=== PATIENT | female | born 1995 | race Caucasian/White ===

== ENCOUNTER 2017-02-14 06:15 | Inpatient (IN) | payer BC ==
[~2017-02-14] VITALS: Ht 160 cm; Wt 71.7 kg
[2017-02-14] VITALS (13 sets, daily range): BP systolic 125–149; BP diastolic 65–98
[~2017-02-14 06:15] MED LIST: IBUPROFEN200 M1 OR; NAPROXEN500 MG PO; PHENERGAN25 MG/TAB PO; SEPTRA PO; TYLENOL500 MG OR
--- NOTE | 2017-02-14 06:27 | NUR ---
AMBULATED TO BIRTHING ROOM #1.
--- NOTE | 2017-02-14 06:40 | NUR ---
REPORT TO Paula MCRAE RNC, AT PATIENT'S BEDSIDE.
--- NOTE | 2017-02-14 06:40 | NUR ---
18G IV STARTED ON LEFT FOREARM, LABS DRAWN. PT TOLERATED IT WELL. LR BOLUS STARTED.
[2017-02-14 06:43] LABS: URINE BILIRUBIN - DIPSTICK NEGATIVE (NEGATIVE); URINE BLOOD DIPSTICK LARGE (NEGATIVE); URINE COLOR YELLOW; URINE GLUCOSE - DIPSTICK NEGATIVE (NEGATIVE); URINE KETONE NEGATIVE (NEGATIVE); URINE LEUK ESTERASE SMALL (NEGATIVE); URINE NITRITE - DIPSTICK NEGATIVE (Negative); URINE PROTEIN - DIPSTICK NEGATIVE (NEG-TRACE); URINE SPECIFIC GRAVITY 1.015; URINE UROBILINOGEN - DIPSTICK 0.2 E.U./dL (0.2)
[2017-02-14 06:44] LABS: URINE CLARITY CLOUDY
[2017-02-14 06:51] LABS: URINE BACTERIA RARE hpf; URINE RBC TNTC RBC/hpf (0-5)
[2017-02-14 06:52] LABS: BARBITURATES NEGATIVE (NEGATIVE); COCAINE NEGATIVE (NEGATIVE); METHADONE NEGATIVE (NEGATIVE); OXCYCODONE NEGATIVE (NEGATIVE); TETRAHYDROCANNABIONOL NEGATIVE (NEGATIVE); TRICYLIC ANTIDEPRESSANTS NEGATIVE (NEGATIVE)
--- NOTE | 2017-02-14 06:56 | NUR ---
PCN STARTED FOR GBS POSITIVE PER PT. RECORDS BEING REQUESTED FROM [facility].
--- NOTE | 2017-02-14 07:00 | NUR ---
PT REPOSITIONED TO HANDS AND KNEES AT THIS TIME, SWAYING SIDE TO SIDE.
--- NOTE | 2017-02-14 07:12 | NUR ---
PT REPOSITIONED TO LEFT TILT AT THIS TIME.
[2017-02-14 07:14] LABS: HEMATOCRIT 32.5 % (37.0-47.0); HEMOGLOBIN 11.6 g/dl (12.0-16.0); IMMATURE GRANULOCYTES 0.7 % (0.0-1.0); MEAN CELL VOLUME 84.9 fL CALC (80.0-100.0); MEAN CORPUSCULAR HGB 30.3 pG CALC (26.0-32.0); MEAN CORPUSCULAR HGB CONC 35.7 g/L CALC (32.0-36.0); NEUT# 7.27 thou/uL (2.00-7.15); RED BLOOD COUNT 3.83 mill/uL (4.20-5.60); RED CELL DISTRI WIDTH 13.3 % (11.5-15.5)
--- NOTE | 2017-02-14 07:24 | NUR ---
DR. ROMERO AT BEDSIDE, SVE DONE, PT SROM AT 0724 FOR CLEAR FLUID, PT IS COMPLETE AND ZERO STATION PER MD. WILL START PUSHING ONCE PT FEELS THE URGE.
--- NOTE | 2017-02-14 07:30 | NUR ---
PT STARTING TO PUSH WITH EACH CONTRACTION.
[2017-02-14] MEDS ORDERED: PRENATAL1 TA1 PO (07:36)
--- NOTE | 2017-02-14 07:38 | NUR ---
REQUEST FOR RECORDS FAXED FOR 3RD TIME TO [facility].
--- NOTE | 2017-02-14 07:42 | NUR ---
S/W ARIANNA OLGUIN AT [facility], SHE HAS RECIEVED FAX AND WILL BE FAXING SY[place]IE.
[2017-02-14 07:52] LABS: ALKALINE PHOSPHATASE 155 u/l (38-126); ANION GAP 17 (6-22 (CALC)); BILIRUBIN, TOTAL 0.5 mg/dL (0.0-1.4); BUN 6 mg/dL (7-17); BUN/CREATININE RATIO 9 (12-20 (CALC)); CALCIUM 9.2 mg/dL (8.4-10.2); CARBON DIOXIDE 17 mmol/l (22-30); CHLORIDE 107 mmol/l (95-108); CREATININE 0.6 mg/dL (0.5-1.0); GFR > 60 ML/MIN (>=60 (CALC)); GFR FOR AFR.AMER. > 60 ML/MIN (>=60 (CALC)); GLUCOSE 90 mg/dL (65-105); POTASSIUM 3.5 mmol/l (3.5-5.1); SGOT/AST 18 u/l (14-36); SGPT/ALT 25 u/l (9-52); SODIUM 138 mmol/l (137-146); TOTAL PROTEIN 7.1 g/dL (6.3-8.2)
[2017-02-14] MEDS ORDERED: FERR SULFATE325 MG PO (08:01)
--- NOTE | 2017-02-14 08:03 | NUR ---
PT REPOSITIONED TO PUSH ON HER LEFT SIDE.
--- NOTE | 2017-02-14 08:20 | NUR ---
LR BOLUS STARTED FOR VARIABLE DECELS. DR. ROMERO AT BEDSIDE, SVE DONE WHILE PT IS PUSHING, PT PUSHING WELL.
--- NOTE | 2017-02-14 08:30 | NUR ---
PT REPOSITIONED TO KNEE CHEST TO CONTINUE TO PUSH.
--- NOTE | 2017-02-14 08:42 | NUR ---
PT REPOSITIONED TO COMMODE TO CONTINUE TO PUSH. FAMILY REMAINS AT BEDSIDE.
--- NOTE | 2017-02-14 08:52 | NUR ---
PT BACK TO BED PER HER REQUEST.
--- NOTE | 2017-02-14 09:18 | NUR ---
O2 APPLIED AT 15LPM PER NON REBREATHER MASK AT THIS TIME. PT CONTINUES TO PUSH WITH EACH CONTRACTION.
--- NOTE | 2017-02-14 09:24 | NUR ---
DR. ROMERO CALLED IN ROOM FOR DELIVERY.
--- NOTE | 2017-02-14 09:30 | NUR ---
OF FEMALE INFANT BY DR. ROMERO. SEE DELIVERY ROOM RECORD FOR DOCUMENTATION.
--- NOTE | 2017-02-14 09:34 | NUR ---
PLACENTA OUT AT THIS TIME. LR WITH 10 UNITS OF PITOCIN BOLUSING PER ORDER. CYTOTEC GIVEN.
--- NOTE | 2017-02-14 09:40 | NUR ---
LIDOCAINE APPLIED BY DR. ROMERO FOR PERINEAL REPAIR AT THIS TIME.
--- NOTE | 2017-02-14 09:45 | NUR ---
DR. ROMERO DONE REPAIRING LEFT SIDE WALL AND RIGHT LABIAL LACERATIONS. PERICARE DONE. FUNDUS FIRM AT UMBILICUS, MODERATE LOCHIA. SEE FUNDAL CHECKS FOR DOCUMENTATION.
--- NOTE | 2017-02-14 11:05 | NUR ---
DR. ROMERO NOTIFIED OF TEMP 100.5, AND BP READINGS. ORDERS RECEIVED.
--- NOTE | 2017-02-14 11:15 | NUR ---
PT UP TO BATHROOM, VOIDED LARGE AMOUNT OF URINE, FUNDUS FIRM AT UMBILICUS. PERICARE DONE. PT THEN ASSISTED TO SHOWER, SHOWERED, BUT FELT DIZZY TOWARDS THE END. NURSE ASSISTED WITH SITTING PT IN TOILET, FINISHING PERICARE, DERMOPLAST APPLIED. PANTIES AND PADS PLACED. NEW GOWN. PT THEN TRANSFERED TO BED. DENIES ANY MORE DIZZINESS. ENCOURAGED TO EAT LUNCH AND PO HYDRATION. INITIAL TEACHING DONE, PT VERBALIZED UNDERSTANDING. DENIES ANY PAIN. AT BEDSIDE.
--- NOTE | 2017-02-14 11:40 | NUR ---
DR. ROMERO NOTIFIED OF TEMP 101.1 ORDERS RECEIVED TO CHANGE ANTIBIOTICS TO ANCEF. FURTHER ORDERS RECEIVED FOR CBC, BCX2 AND URINE CULTURE. DISCUSSED PLAN OF CARE WITH PT, PT VERBALIZED UNDERSTANDING.
[2017-02-14 12:16] LABS: HEMATOCRIT 29.8 % (37.0-47.0); HEMOGLOBIN 10.4 g/dl (12.0-16.0); IMMATURE GRANULOCYTES 0.8 % (0.0-1.0); MEAN CELL VOLUME 86.6 fL CALC (80.0-100.0); MEAN CORPUSCULAR HGB 30.2 pG CALC (26.0-32.0); MEAN CORPUSCULAR HGB CONC 34.9 g/L CALC (32.0-36.0); NEUT# 19.05 thou/uL (2.00-7.15); RED BLOOD COUNT 3.44 mill/uL (4.20-5.60); RED CELL DISTRI WIDTH 13.3 % (11.5-15.5)
--- NOTE | 2017-02-14 12:30 | NUR ---
REPORT GIVEN TO Priya SANCHES RN TO ASSUME CARE OF PT.
--- NOTE | 2017-02-14 13:00 | NUR ---
PT. ASSISTED OOB TO TOILET WITHOUT ANY ADVERSE EFFECT. PT. VOIDED AND PERICARE DEMONSTRATED. PT. RETURNED DEMO SATISFACTORILY.
--- NOTE | 2017-02-14 15:29 | NUR ---
IV FLUID INFUSION D/C. PT.IN STABLE CONDITION. TOLERATED REGULAR DIET.OOB AD YENNY TO BATHROOM.
--- NOTE | 2017-02-14 17:10 | NUR ---
pT. IN STABLE CONDITION. MOVED TO PAC UNIT WITH BABY CRADLED ON CHEST AND SPOUSE ACCOMPANYING . MOVE WAS DONE DUE TO CODE BROWN/WEATHER.
--- NOTE | 2017-02-14 19:00 | NUR ---
BEDSIDE SHIFT REPORT RECEIVED FROM PREVIOUS SHIFT. PT SITTING UP IN BED, HOLDING INFANT SKIN TO SKIN. DENIES ANY NEEDS AT THIS TIME. POC GIVEN. WILL RETURN TO MONITOR.
--- NOTE | 2017-02-14 19:35 | NUR ---
PT ASSISTED OUT OF BED, AMBULATED TO BR. DENIES C/O DIZZINESS OR WEAKNESS. PT URINATED MOD AMT WITH SMALL AMOUNT OF BLEEDING. NO CLOTS NOTED. MOISES CARE INSTRUCTIONS GIVEN AND RETURN DEMONSTRATION GIVEN. TUCKS PADS AND AMERICAINE SPRAY USED. CLEAN PADDING/PANTIES PROVIDED. PT ASSISTED BACK TO BED, ASSESSMENT AND VS STABLE CHARTED. PT DENIES ANY PAIN. WATER REFILLED. BED IN LOW POSITION, CALL LIGHT IN REACH. S/O AT BEDSIDE.
--- NOTE | 2017-02-14 22:10 | NUR ---
Pt ambulates to restroom. Gait steady and even. Denies dizziness. Does own david care.
--- NOTE | 2017-02-14 23:06 | NUR ---
Pt holding . No complaints. Denies pain.
--- NOTE | 2017-02-15 04:20 | NUR ---
PT AWAKE UPON ENTRANCE TO ROOM. DENIES PAIN OR NEEDS AT THIS TIME. WILL CONTINUE TO MONITOR.
--- NOTE | 2017-02-15 06:00 | NUR ---
CBC DRAWN X1 ATTEMPT TO RT.AC. PT TOLERATED WELL.
[2017-02-15 06:38] LABS: HEMATOCRIT 25.4 % (37.0-47.0); HEMOGLOBIN 8.7 g/dl (12.0-16.0); IMMATURE GRANULOCYTES 0.9 % (0.0-1.0); MEAN CELL VOLUME 87.3 fL CALC (80.0-100.0); MEAN CORPUSCULAR HGB 29.9 pG CALC (26.0-32.0); MEAN CORPUSCULAR HGB CONC 34.3 g/L CALC (32.0-36.0); NEUT# 7.1 thou/uL (2.00-7.15); RED BLOOD COUNT 2.91 mill/uL (4.20-5.60); RED CELL DISTRI WIDTH 13.8 % (11.5-15.5)
[2017-02-15 08:00] VITALS: BP 123/69
--- NOTE | 2017-02-15 08:00 | NUR ---
ASSESSMENT CHARTED, PT UP IN BED WITH . FAMILY AT BEDSIDE AND SUPPORTIVE. LABIA SWOLLEN, LEFT>RIGHT. NO PAIN, STATES USING SPRAY AND TUCKS PRN.
--- NOTE | 2017-02-15 09:35 | NUR ---
RECEIVED CARE OF PT. REPORT BY Sandy SOL AT BEDSIDE. PT DENIES PAIN AT THIS TIME. POSITIVE BONDING NOTED. CALL LIGHT WITHIN REACH.
--- NOTE | 2017-02-15 09:45 | NUR ---
Dr baires aware of pt cbc results, no new orders. Will continue to monitor.
--- NOTE | 2017-02-15 10:00 | NUR ---
Americaine spray and tucks pads in pt restroom. Pt denies heavy bleeding or clots. No petechiae noted. Skin pale, pt denies dizziness or fainting. Encouraged to drink plenty fluids. Call light within reach.
[2017-02-15 17:00] VITALS: BP 122/74
--- NOTE | 2017-02-15 17:30 | NUR ---
Sarah pads given. Pt using spray and tucks pads.
--- NOTE | 2017-02-15 18:50 | NUR ---
REPORT GIVEN TO Evelin DEL TORO RN. PT WITH NO REQUESTS.
--- NOTE | 2017-02-15 19:25 | NUR ---
ASSUMED CARE OF PT. PT IS RESTING QUIETLY IN BED WITH EYES CLOSED, RESPIRATIONS UNLABORED, IN NO APPARENT DISTRESS. CALLBELL WITHIN REACH. VISITOR AT BEDSIDE.
--- NOTE | 2017-02-15 20:00 | NUR ---
Pt was assisted with positioning and latch on for , demonstrated understanding. RN will continue to assist pt with process.
[2017-02-15 20:45] VITALS: BP 118/70
--- NOTE | 2017-02-15 20:45 | NUR ---
assessment completed as charted; VSS; Pt is voiding and performing own pericare; perineum slightly edematus r/t rt. labial tear, no bruising present. pt is usiing tucks pads and americaine spray for perineal discomfort. declined sitzbath. Pt denies any c/o discomfort at this time. care reviewed with pt, pt verbalized understanding. Visitor remains at bedside. callbell within reach.
--- NOTE | 2017-02-15 23:00 | NUR ---
pt viewed instructional videos.
--- NOTE | 2017-02-15 23:00 | NUR ---
D/C instructions for both mother and infant reviewed with pt. pt verbalized understanding; papers signed.
--- NOTE | 2017-02-15 23:33 | NUR ---
Pt up to shower, bed linens changed.
--- NOTE | 2017-02-16 | NUR ---
pt was assisted with positioning and latch on for and demonstrated understanding. pt was instructed on the use of colostrum/breastmilk rubbed around nipples after to help with nipple dryness, verbalized understanding.
--- NOTE | 2017-02-16 01:00 | NUR ---
pt resting quietly in bed with eyes closed, respirations unlabored, in no apparent distress. callbell within reach.
--- NOTE | 2017-02-16 02:40 | NUR ---
infant brought back to room, ID bands varified. Pt was able to get to latch for without difficutly. continues to denie any c/o discomfort at this time.
--- NOTE | 2017-02-16 04:20 | NUR ---
pt resting quietly in bed with eyes closed, in no apparent distress.
[2017-02-16 06:00] VITALS: BP 124/74
--- NOTE | 2017-02-16 06:00 | NUR ---
pt denies any c/o discomfort at this time. vss.
--- NOTE | 2017-02-16 06:45 | NUR ---
RECEIVED CARE OF PT. RESTING IN BED WITH NO COMPLAINTS. CALL LIGHT WITHIN REACH.
--- NOTE | 2017-02-16 06:48 | NUR ---
report given to Carolynn Mendez RN
[2017-02-16 07:40] VITALS: BP 112/81
--- NOTE | 2017-02-16 07:40 | NUR ---
ASSESSMENT CHARTED. PT DENIES PAIN AT THIS TIME. DENIES S/S OF DEPRESSION. ENCOURAGED TO DRINK PLENTY FLUIDS AND AMBULATE. LOCHIA MODERATE WITH NO CLOTS. PT DENIES FAINTING, DIZZINESS, OR WEAKNESS. PT AMBULATING IN ROOM WITH NO COMPLAINTS.
--- NOTE | 2017-02-16 12:35 | NUR ---
Discharge instructions given. Patient verbalizes understanding of same. Discharged in stable condition via Wheelchair to Home with family. All belongings sent with pt. No prescriptions given. Pt states she cannot swallow pills. Dr Martines encouraged pt to purchase liquid Motrin or Tylenol [id number]. Pt encouraged to review control options prior to follow-up appt in [address] Martines.
== END 2017-02-16 12:35 | disposition home or self-care (01) | DRG 774 ==
LOC: OB 06:15 → OBOP 06:15 → OB 06:30
PROVIDERS: ADMIT Obstetrics & Gynecology; ATTEND Obstetrics & Gynecology
PROC: 10E0XZZ Delivery of Products of Conception, External Approach (ICD-10-PCS; principal; 2017-02-14)
PROC: 0HQ9XZZ Repair Perineum Skin, External Approach (ICD-10-PCS; 2017-02-14)
DX: O70.0 First degree perineal laceration during delivery (principal); O86.4 Pyrexia of unknown origin following delivery; Z3A.40 40 weeks gestation of pregnancy; Z37.0 Single live birth
CPT/HCPCS: J2540

== ENCOUNTER 2024-02-23 18:17 | Emergency (ER) | payer OTHER ==
[~2024-02-23] VITALS: Ht 160 cm; Wt 58.9 kg
[2024-02-23] VITALS (12 sets, daily range): BP systolic 108–136; BP diastolic 66–79
[~2024-02-23 18:17] MED LIST changes: +FERR SULFATE325 MG PO; +PRENATAL1 TA1 PO
[2024-02-23] MEDS ORDERED: ACETAMINOPHEN 160 MG/5 ML DOSE PO ONE (18:35)
[2024-02-23] MEDS ORDERED: SODIUM CHLORIDE 0.9% 1,000 ML IV ONE (18:35)
[2024-02-23] MEDS ORDERED: ONDANSETRON HCl 4 MG/2 ML SDV IV ONE (18:35)
[2024-02-23] MEDS ORDERED: KETOROLAC TROMETHAMINE 30 MG/ML SDV IV ONE (18:40)
[2024-02-23 18:53] LABS: URINE BLOOD DIPSTICK Moderate (NEGATIVE); URINE GLUCOSE - DIPSTICK Negative (NEGATIVE); URINE KETONE >=160 mg/dL (NEGATIVE); URINE NITRITE - DIPSTICK Negative (Negative); URINE PH 5.5 (4.5-8.0); URINE PROTEIN - DIPSTICK 30 mg/dL (NEG-TRACE); URINE SPECIFIC GRAVITY >=1.030; URINE UROBILINOGEN - DIPSTICK 0.2 E.U./dL (0.2)
[2024-02-23 18:55] LABS: BASO% 0.1 % (0-3); EOS% 0.1 % (0-8); HEMATOCRIT 37.5 % (37.0-47.0); IMMATURE GRANULOCYTES 0.1 % (0.0-5.0); LYMPH% 7.8 % (15-41); MEAN CELL VOLUME 85.6 fL CALC (80.0-100.0); MEAN CORPUSCULAR HGB 27.4 pG CALC (26.0-32.0); MONO% 6.9 % (2-13); NEUT# 6.38 thou/uL (2.00-7.15); RED BLOOD COUNT 4.38 mill/uL (4.20-5.60); RED CELL DISTRI WIDTH 12.7 % (11.5-15.5)
[2024-02-23 18:59] LABS: URINE COLOR Yellow
[2024-02-23 19:00] LABS: URINE LEUK ESTERASE Moderate (NEGATIVE)
[2024-02-23 19:08] LABS: ALBUMIN 4.6 g/dL (3.2-5.0); BILIRUBIN, TOTAL 0.8 mg/dL (0.02-1.3); CREATININE 0.8 mg/dL (0.5-1.0); POTASSIUM 3.7 mmol/l (3.5-5.1); TOTAL PROTEIN 7.5 g/dL (6.3-8.2)
[2024-02-23 19:16] LABS: URINE SQUAMOUS EPITHELIAL CELL MODERATE EPI/hpf (0-FEW)
[2024-02-23 19:19] LABS: URINE MUCUS FEW hpf (NONE-FEW)
[2024-02-23 19:22] LABS: URINE RBC 0-2 RBC/hpf (0-5)
[2024-02-23 19:24] LABS: URINE BACTERIA MODERATE hpf
[2024-02-23] MEDS ORDERED: METOCLOPRAMIDE HCL 10 MG/TAB PO ONE (19:25)
[2024-02-23] MEDS ORDERED: OMNI-PAC300 MG PO (19:26)
[2024-02-23] MEDS ORDERED: REGLAN10 MG PO (19:26)
== END 2024-02-23 21:00 | disposition home or self-care (01) ==
LOC: ED 18:17
PROVIDERS: Family Medicine
DX: N39.0 Urinary tract infection, site not specified (principal); Z20.822 Contact with and (suspected) exposure to COVID-19

== ENCOUNTER 2024-06-06 17:55 | Emergency (ER) | payer OTHER ==
[~2024-06-06 17:55] MED LIST changes: +CEFDINIR250 MG/5 M PO; +CEPHALEXIN125 MG/5 M PO; +OMNI-PAC300 MG PO; +REGLAN10 MG PO
== END 2024-06-06 19:18 | disposition left against medical advice (07) | DRG 951 ==
LOC: ED 17:55 → LWOBS 19:18
DX: Z53.21 Procedure and treatment not carried out due to patient leaving prior to being seen by health care provider (principal); M54.89 Other dorsalgia

== ENCOUNTER 2024-06-06 20:46 | Emergency (ER) | payer OTHER ==
[~2024-06-06] VITALS: Ht 160 cm; Wt 59.0 kg
[2024-06-06 23:16] LABS: BASO% 0.3 % (0-3); EOS% 0.9 % (0-8); HEMATOCRIT 31.8 % (37.0-47.0); HEMOGLOBIN 10.2 g/dl (12.0-16.0); IMMATURE GRANULOCYTES 0.6 % (0.0-5.0); LYMPH% 12.4 % (15-41); MEAN CELL VOLUME 84.8 fL CALC (80.0-100.0); MEAN CORPUSCULAR HGB 27.2 pG CALC (26.0-32.0); MEAN CORPUSCULAR HGB CONC 32.1 g/dL CAL (32.0-36.0); MONO% 17.6 % (2-13); NEUT# 2.32 thou/uL (2.00-7.15); NEUT% 68.2 % (42-76); RED BLOOD COUNT 3.75 mill/uL (4.20-5.60); RED CELL DISTRI WIDTH 13.5 % (11.5-15.5)
[2024-06-06 23:17] LABS: URINE BILIRUBIN - DIPSTICK Negative (NEGATIVE); URINE BLOOD DIPSTICK Moderate (NEGATIVE); URINE GLUCOSE - DIPSTICK Negative (NEGATIVE); URINE KETONE Negative (NEGATIVE); URINE LEUK ESTERASE Negative (NEGATIVE); URINE NITRITE - DIPSTICK Negative (Negative); URINE PH 5.5 (4.5-8.0); URINE PROTEIN - DIPSTICK Negative (NEG-TRACE); URINE UROBILINOGEN - DIPSTICK 0.2 E.U./dL (0.2)
[2024-06-06 23:18] LABS: URINE COLOR Yellow
[2024-06-06 23:28] LABS: ALBUMIN 4.2 g/dL (3.2-5.0); BILIRUBIN, TOTAL 0.4 mg/dL (0.02-1.3); CREATININE 0.8 mg/dL (0.5-1.0); POTASSIUM 3.9 mmol/l (3.5-5.1); TOTAL PROTEIN 6.8 g/dL (6.3-8.2)
[2024-06-06 23:30] LABS: URINE SQUAMOUS EPITHELIAL CELL FEW EPI/hpf (0-FEW); URINE WBC 0-2 WBC/hpf (0-5)
[2024-06-06] MEDS ORDERED: NAPROXEN 250 MG/TAB PO ONE (23:45)
[2024-06-06] MEDS ORDERED: NITROFURANTOIN 100 MG/CAP PO ONE (23:45)
[2024-06-07] MEDS ORDERED: CEFDINIR 250 MG/5 ML SUSP PO ONE (00:05)
[2024-06-07 00:22] VITALS: BP 124/80
[2024-06-07] MEDS ORDERED: ACETAMINOPHEN 160 MG/5 ML DOSE PO ONE (00:30)
[2024-06-07 01:00] VITALS: BP 125/65
[2024-06-07 01:39] VITALS: BP 125/65
== END 2024-06-07 01:40 | disposition home or self-care (01) ==
LOC: ED 20:46
PROVIDERS: Family Medicine
DX: O26.891 Other specified pregnancy related conditions, first trimester (principal); M54.50 Low back pain, unspecified; R51.9 Headache, unspecified; R09.81 Nasal congestion; Z3A.01 Less than 8 weeks gestation of pregnancy; Z87.440 Personal history of urinary (tract) infections; Z20.822 Contact with and (suspected) exposure to COVID-19